=== PATIENT | female | born 1945 | race Caucasian/White ===

== ENCOUNTER 2017-10-07 08:15 | Emergency (ER) | payer BC, MEDICARE ==
--- NOTE | 2017-10-07 08:39 | ED ---
General Adult HPI - General Chief complaint: Fall Stated complaint: FALL DOWN STEP, LEFT SHOULDER AND HEAD INJURY Time Seen by Provider: 10/07/17 08:19 Source: patient, RN notes reviewed Mode of arrival: ambulatory Limitations: no limitations - History of Present Illness Initial comments: 72-year-old female presents to the emergency department with a chief complaint of trip and fall. She has 3 stairs to go into where she parked her car. She states that she lost her balance she fell hitting her left shoulder and the left side of her head. She states she originally had dizziness after she got up from the fall but that seems to be getting somewhat better. She admits to mild headache. She denies any changes in vision. She states she had bruising around her left eye but now she is just noticed bruising. She denies any neck pain. She states she has had some shoulder pain from the fall. It hurt worse when she fell but it is improving at this time. She states she is able to move the shoulder. She states there is no lightheadedness or dizziness prior to the fall. It was just a trip and fall. No chest pain or shortness of breath. She did not pass out with the fall. She denies any use of blood thinners. Patient denies any recent fever, chills, shortness of breath, chest pain, back pain, abdominal pain, nausea vomiting, numbness or tingling, dysuria or hematuria, constipation or diarrhea, s or visual changes, or any other current symptoms. - Related Data Home Medications Medication Instructions Recorded Confirmed Ibuprofen [Advil] 400 mg PO DAILY 09/05/17 09/05/17 Meclizine [Antivert] 25 mg PO TID PRN 09/05/17 09/05/17 Nebivolol HCl [Bystolic] 10 mg PO DAILY 09/05/17 09/05/17 Allergies Allergy/AdvReac Type Severity Reaction Status Date / Time No Known Allergies Allergy Verified 10/07/17 08:18 Review of Systems ROS Statement: Those systems with pertinent positive or pertinent negative responses have been documented in the HPI. ROS Other: All systems not noted in ROS Statement are negative. Past Medical History Past Medical History: Hypertension Additional Past Medical History / Comment(s): vertigo, deaf right ear History of Any Multi-Drug Resistant Organisms: None Reported Past Surgical History: No Surgical Hx Reported Past Psychological History: No Psychological Hx Reported Smoking Status: Never smoker Past Alcohol Use History: Rare Past Drug Use History: None Reported General Exam Limitations: no limitations General appearance: alert, in no apparent distress Head exam: Present: atraumatic, normocephalic, normal inspection Eye exam: Present: normal appearance, PERRL, EOMI, periorbital swelling (Some mild swelling over the lateral aspect of the left eye with ecchymosis), periorbital tenderness (Tenderness of the lateral aspect of the left eye). Absent: scleral icterus, conjunctival injection ENT exam: Present: normal exam, mucous membranes moist Neck exam: Present: normal inspection. Absent: tenderness, meningismus, lymphadenopathy Respiratory exam: Present: normal lung sounds bilaterally. Absent: respiratory distress, wheezes, rales, rhonchi, stridor Cardiovascular Exam: Present: regular rate, normal rhythm, normal heart sounds. Absent: systolic murmur, diastolic murmur, rubs, gallop, clicks Extremities exam: Present: normal inspection, full ROM, tenderness (Minimal tenderness diffusely to the top of the left shoulder), normal capillary refill. Absent: pedal edema, joint swelling, calf tenderness Back exam: Present: normal inspection Neurological exam: Present: alert, oriented X3, CN II-XII intact, reflexes normal. Absent: motor sensory deficit Psychiatric exam: Present: normal affect, normal mood Skin exam: Present: warm, dry, intact, normal color. Absent: rash Course Vital Signs 10/07/17 08:16 Temperature 98.1 F Pulse Rate 78 Respiratory 20 Rate Blood Pressure 183/79 O2 Sat by Pulse 99 Oximetry Medical Decision Making - Medical Decision Making 72-year-old female presents to the emergency Department chief complaint of trip and fall. At this time patient's imaging has been reviewed. Patient is reassessed and states she is feeling better. This time we discussed ice. We discussed follow-up. We discussed return parameters all questions. The patient stated that she understood and she is in agreement this plan. All questions have been answered. She will be discharged. - Radiology Data Radiology results: report reviewed, image reviewed Disposition Clinical Impression: Fall, Concussion without loss of consciousness, Left shoulder pain, Facial contusion Disposition: HOME SELF-CARE Condition: Stable Instructions: Concussion (ED) Additional Instructions: Please use medications as discussed. Please return for any worsening or changing symptoms. Please follow up as discussed. Referrals: Javier Rodriguez DO [Primary Care Provider] - 1-2 days Time of Disposition: 09:25
--- NOTE | 2017-10-07 09:09 | XR ---
Left shoulder HISTORY: Trauma and pain 3 views of the left shoulder There is arthropathy at the acromioclavicular joint. Bone mineralization, joint spaces and alignment are maintained. Left lung apex as visualized is normal. Degenerative disc changes are present in the visualized spine. IMPRESSION: No fracture or dislocation is evident.
--- NOTE | 2017-10-07 09:19 | CT ---
EXAMINATION TYPE: CT brain cspine wo con, CT facial bones wo con DATE OF EXAM: 10/07/2017 COMPARISON: NONE HISTORY: Fall, bruising lateral left eye socket with headache and neck pain. CT DLP: 1778.99 (accession [id number]), 359.70 (accession [id number]) mGycm. Automated Exposure Control f or Dose Reduction was Utilized. TECHNIQUE: CT scan of the head , facial bones, and cervical spine are all performed without contrast. FINDINGS: There is no acute intracranial hemorrhage or midline shift identified. Ventricles and sul ci are mildly prominent consistent with mild diffuse age-related cerebral atrophy. The calvarium is intact. Nasal bones and bridge are intact. Orbital floors and valdez are intact bilaterally. The globes are in tact bilaterally. Intraconal fat is preserved. The zygomatic arches are intact bilaterally. The ptery goid plates are intact. Visualized mandible is intact. Temporomandibular joints are maintained bilate rally. Visualized paranasal sinuses are clear. Minimal subcutaneous edema and/or hematoma left zygoma level near axial image 8. Cervical spine is visualized in its entirety from C1 through upper thoracic levels and demonstrates s atisfactory alignment without evidence of acute fracture or dislocation. Prevertebral soft tissue ap pears within normal limits. The C1-C2 articulation is within normal limits on the coronal images. Vertebral body heights are maintained. There is moderate disc space narrowing and spurring C5-C6 leve l. Posterior spur disc complex is seen C6-C7 level on sagittal images. Review of axial images shows the C2-C3 level to appear within normal limits. Axial images at C3-C4 level shows central disc protrusion effacing anterior thecal sac up to ventral surface of spinal cord on axial image 33. Bilateral neural foramina are patent. Axial images at C4-C5 level show small central disc protrusion effacing anterior thecal sac and axial image 40, bilateral neural foramina are patent. Axial images at C5-C6 level show posterior and marginal spurring effacing anterior thecal sac and cau sing [id number] bilateral neural foraminal narrowing near axial image 48. Axial images at C6-C7 level show posterior spur disc complex effacing anterior thecal sac with margin al spurring causing [id number] bilateral neural foraminal narrowing. Axial images at C7-T1 level are felt within normal limits. Thyroid gland is overall heterogeneous. Visualized lung apices are clear. There are prominent but sub centimeter lymph nodes scattered throughout the neck bilaterally. IMPRESSION: 1. There is no acute fracture or dislocation evident in the cervical spine. 2. No acute intracranial hemorrhage or midline shift is seen. 3. No acute facial bone fracture or dislocation is seen.
[2017-10-07 09:50] VITALS: BP 157/84; PULSE 87; RESP 17; TEMP 98.3
== END 2017-10-07 09:49 | disposition home or self-care (01) ==
LOC: EC 08:15
DX: S06.0X0A Concussion without loss of consciousness, initial encounter (principal); S00.83XA Contusion of other part of head, initial encounter; M25.512 Pain in left shoulder; I10 Essential (primary) hypertension; Z79.899 Other long term (current) drug therapy; Z79.1 Long term (current) use of non-steroidal anti-inflammatories (NSAID); W10.9XXA Fall (on) (from) unspecified stairs and steps, initial encounter
CPT/HCPCS: 70450; 70486; 72125; 99284

== ENCOUNTER → 2020-04-12 | Outpatient (CLI) | payer MEDICARE, OTHER | END | disposition home or self-care (01) | LOC: LABPAT 14:31 | PROVIDERS: ATTEND Orthopaedic Surgery | DX: Z01.812 Encounter for preprocedural laboratory examination (principal) | CPT/HCPCS: 87070 ==

== ENCOUNTER 2020-04-23 11:03 | Observation (INO) | payer MEDICARE, OTHER ==
[2020-04-13 10:27] VITALS: BMI 35.9
--- NOTE | 2020-04-22 16:16 | HP ---
HISTORY AND PHYSICAL REASON FOR ADMISSION: Surgery is 04/23/2020. HISTORY OF PRESENT ILLNESS: Riya Pena is a 74-year-old patient seen with symptomatic left knee osteoarthritis. We discussed options. She elected to proceed with left total knee arthroplasty. Consent was obtained. Medical clearance was provided by Dr. Rodriguez. PAST MEDICAL HISTORY: Hypertension. SURGICAL HISTORY: Breast reduction surgery, right knee arthroscopy. MEDICATIONS: Atenolol. ALLERGIES: None. SOCIAL HISTORY: She denies tobacco use. PHYSICAL EXAMINATION: Evaluation of the left knee: Range of motion is -7 to 110. Mild effusion. Tenderness medial joint line. Crepitus medial patellofemoral compartments range of motion. Pain with patellofemoral compression. Ligaments stable. Hip rotation without pain. Distal neurovascular exam is intact. RADIOGRAPHS: Radiographs of her left knee reveal severe osteoarthritic changes. IMPRESSION: 1. Left knee osteoarthritis. 2. Hypertension. PLAN: Left total knee arthroplasty. MMODL / IJN: [id number] /
[~2020-04-23 11:03] MED LIST: ACETAMINOPHEN TAB 500 MG TAB PO ONE; LIDOCAINE 1% (10MG/ML) FOR IV START INTRADERMA PRN; MELOXICAM 7.5 MG TAB PO ONE; MIDAZOLAM 2 MG/2 ML VIAL IV PRN; ROPIVACAINE 246.25 MG, EPINEPHrine 0.5 MG, KETOROLAC 30 MG, cloNIDine HCL/PF 80 MCG, WA... MISCELLANE ONE; TRANEXAMIC ACID 1,000 MG in SODIUM CHLORIDE 0.9% 100 ML IVPB ONE; fentaNYL (PF) 50 MCG/ML 2 ML AMP IV PRN
[2020-04-23] MEDS ORDERED: ACETAMINOPHEN TAB 500 MG TAB ONE (11:32)
[2020-04-23] MEDS ORDERED: ONDANSETRON 4 MG/2 ML VIAL ONE (11:32)
[2020-04-23] MEDS: LACTATED RINGERS 1,000 ML IV SCH ×2 (11:43→17:53)
[2020-04-23] MEDS ORDERED: DEXAMETHASONE SOD PHOSPHATE 10 MG/ML 1 ML VIAL IV ONE (11:44)
[2020-04-23] MEDS ORDERED: MIDAZOLAM 2 MG/2 ML VIAL IV ONE (12:00)
[2020-04-23] MEDS ORDERED: PROPOFOL 10 MG/ML 20 ML VIAL IV ONE (12:41)
[2020-04-23] MEDS ORDERED: MIDAZOLAM 2 MG/2 ML VIAL ONE (12:41)
[2020-04-23] MEDS ORDERED: TRANEXAMIC ACID 1,000 MG/10 ML VIAL ONE (12:41)
[2020-04-23] MEDS ORDERED: SODIUM CHLORIDE 0.9% 100 ML BAG ONE (12:41)
[2020-04-23] MEDS ORDERED: fentaNYL (PF) 50 MCG/ML 2 ML AMP ONE (12:41)
[2020-04-23] MEDS ORDERED: ceFAZolin 3,000 MG in SODIUM CHLORIDE 0.9% IRRIGATIO 3,000 ML IRRIGATION ONE (13:27)
[2020-04-23] MEDS ORDERED: ROPIVACAINE 0.2%-NS ON-Q PUMP 1,090 MG, EMPTY PAIN BALL 1 EACH MISCELLANE PRN (14:05)
--- NOTE | 2020-04-23 14:05 | P.ANPRN ---
Procedure Note - Anesthesia - Nerve Block Performed Left Adductor Canal Infusion Time Out Performed: Yes (1200) Date of Procedure: 04/23/20 Procedure Start Time: 12:01 Procedure Stop Time: 12:11 Location of Patient: PreOp Indication: Acute Post-Operative Pain, Analgesia, Requested by Surgeon Specifically requested for management of pain by DrClaire: Rosalino Marie Sedation Type: Sedate with meaningful contact maintained Preparation: Sterile Prep, Sterile Dressing Position: Supine Catheter: Indwelling Needle Types: Adelita Needle Gauge: 20 Ultrasound used to visualize needle placement: Yes Ultrasound used to observe medication spread: Yes Injectate: 0.5% Ropivacaine (see comment for volume) (0.5 % ropivacaine 20 mL and 10 mg dexamethasone) Blood Aspirated: No Pain Paresthesia on Injection Noted: No Resistance on Injection: Normal Image Stored and Saved: Yes Events: Uneventful and Well Tolerated
[2020-04-23] MEDS ORDERED: HYDROcodone/APAP 5-325MG 1 EACH TAB PO PRN (14:36)
[2020-04-23] MEDS ORDERED: NALOXONE 0.4 MG/ML 1 ML VIAL IV PRN (14:36)
[2020-04-23] MEDS ORDERED: HYDROmorphone 0.5 MG/0.5 ML SYRINGE IVP PRN ×3 (14:36)
--- NOTE | 2020-04-23 14:36 | P.OP ---
Date of Procedure: 04/23/20 Preoperative Diagnosis: Left knee osteoarthritis Postoperative Diagnosis: Left knee osteoarthritis Procedure(s) Performed: Left total knee arthroplasty Implants: 1. Microport evolution size 4 left cemented femur 2. Microport evolution size 4 left cemented tibial baseplate 3. Microport evolution size 4 left CS 10 mm polyethylene tibial insert 4. Microport advance 32 mm all polyethylene cemented patella Anesthesia: regional (Adductor canal catheter), spinal Surgeon: Rosalino Marie Software Testing Specialist #1: Ketan Mata Estimated Blood Loss (ml): 50 Pathology: other (Bone) Condition: stable Disposition: PACU Indications for Procedure: 74-year-old patient seen with symptomatic left knee osteoarthritis. After treatment options were discussed, she elected to proceed with total knee arthroplasty. Operative Findings: See description of procedure Description of Procedure: Patient was taken to the operative suite after having an adductor canal catheter placed by the department of anesthesia. Patient underwent a left anesthetic by the department of anesthesia. Patient was given preoperative IV intake antibiotics and TXA. A well-padded tourniquet was placed about the left lower extremity. The lower extremity was then prepped and draped in the normal sterile orthopedic fashion. The extremity was elevated, a tourniquet was insufflated to 300. A standard anterior incision was made sharply through skin. Dissection was taken down through the subcutaneous soft tissues down to the extensor mechanism. A medial arthrotomy was performed, patella was everted and knee was flexed. There was advanced osteoarthritis noted. I introduced my distal intramedullary femoral drill. I then introduced the distal femoral cutting jig. Uziel LOPEZ secured the cutting jig with 2 pins. I held retractors in position while Uziel LOPEZ performed the distal femoral resection through the guide area we now removed her distal femoral cutting guide. We now placed our 4-in-1 femoral cutting block and positioned and it was secured with 2 pins by Uziel LOPEZ while I held the block in position. The distal femoral finishing was now completed. A proximal tibial cutting guide was positioned. I held the guide in the appropriate position with both hands well zUiel LOPEZ inserted stabilizing pins into the guide. Proximal tibial cut was made. We now placed a trial femoral component into position, along with an appropriate size tibial tray and insert. We now took the knee through range of motion and had full extension good flexion and good overall soft tissue balance noted. The patella was everted and stabilized with 2 towel clips held by Uziel LOPEZ while I performed a flush with patellar quad tendon utilizing a fresh sawblade. We templated the patella, appropriate drill holes were made. An appropriate trial patella was positioned, knee was taken through full range of motion with the patella tracking very nicely. The trial patella was removed. Drill holes were made through the femoral component. All trial components were removed after marking off the appropriate rotation of the tibia. Retractors were now positioned along the proximal tibia. An appropriate keel punch was made with the appropriate size tibial guide by myself on Uziel LOPEZ assisted by holding retractors. At this point appropriate size implants were chosen and opened. The joint was irrigated copiously with pulse lavage mechanical irrigation. The posterior capsule was infiltrated with local analgesic. The wound was irrigated with pulse lavage mechanical irrigation. We mixed antibiotic methylmethacrylate. We placed the knee into flexion. We placed multiple retractors assisted by Uziel LOPEZ to expose the proximal tibia. Once the methyl methacrylate was ready, the tibial component was cemented into place removing any excess methylmethacrylate form by both myself and Uziel LOPEZ. The femoral component was cemented into place removing the removing any excess methylmethacrylate performed by both myself and Uziel LOPEZ. We then inserted the appropriate size polyethylene tibial insert. We made sure that it was locked into position. We took the knee into full extension, and then back in a flexion making sure we had removed any excess methylmethacrylate. The patellar component was then cemented down and secured with clamp. Excess me thylmethacrylate removed. We kept the knee in full extension, patellar clamp in position until methylmethacrylate had hardened. Once it had hardened the patellar clamp was removed. The knee was taken through full range of motion. The patella tracked nicely. There was good soft tissue balancing. The tourniquet was now released. Additional hemostasis was achieved via electrocautery. A second gram of TXA was given. The wound again was irrigated with pulse lavage mechanical irrigation. The superficial soft tissues were infiltrated local analgesic. The extensor mechanism was repaired with Vicryl. We checked the repair with range of motion and it was stable. The subcutaneous soft tissues were repaired with Vicryl in layers. The skin was approximated with pernio/Dermabond. Sterile dressings were applied followed by loose web roll and Aime bandage. The patient was transferred to a bed, and taken to recovery in stable and satisfactory condition. Uziel LOPEZ assisted with this complex procedure.
--- NOTE | 2020-04-23 15:13 | XR ---
EXAMINATION TYPE: XR knee limited LT DATE OF EXAM: 04/23/2020 CLINICAL HISTORY: Left knee pain and arthritis status post total knee replacement. TECHNIQUE: Portable AP and crosstable lateral views of the left knee are obtained immediately postop eratively. COMPARISON: None FINDINGS: Metallic hardware from total left knee arthroplasty is seen and appears satisfactory in al ignment and position. There is evidence of recent surgery with diffuse subcutaneous gas and soft tis knea swelling along with vertical skin archie all noted. IMPRESSION: METALLIC HARDWARE FROM TOTAL LEFT KNEE ARTHROPLASTY IS SATISFACTORY IN ALIGNMENT.
[2020-04-23] MEDS ORDERED: LACTATED RINGERS 1,000 ML IV ONE ×2 (15:21)
[2020-04-23] MEDS: SODIUM CHLORIDE 0.9% 1,000 ML IV SCH ×2 (17:54→22:18)
[2020-04-23] MEDS ORDERED: ENOXAPARIN 30 MG/0.3 ML SYRINGE SQ SCH (21:00)
[2020-04-23] MEDS ORDERED: SENNOSIDES-DOCUSATE SODIUM 1 EACH TAB PO SCH (21:00)
[2020-04-23] MEDS: ONDANSETRON 4 MG/2 ML VIAL IVP PRN (22:26)
[2020-04-23] MEDS: HYDROcodone/APAP 5-325MG 1 EACH TAB PO PRN (22:26)
[2020-04-24 05:20] VITALS: RESP 18
--- NOTE | 2020-04-24 05:55 | P.PN ---
Progress Note - Text Progress Note Date: 04/24/20 Patient was seen at bedside at 550 AM. Patient is postop day 1 left total knee replacement with adductor canal catheter placed for pain . Ropivacaine 0.2% infusion running at 8 ml per hour. VAS score is 2. Patient denies side effects. Lower extremity sensation and motor function is intact. Patient has ambulated. Dressing clean dry and intact over catheter site
[2020-04-24] MEDS ORDERED: ENOXAPARIN 30 MG/0.3 ML SYRINGE SQ SCH (06:00)
[2020-04-24 08:04] VITALS: BP 137/77; PULSE 76; TEMP 98.2
[2020-04-24] MEDS: ONDANSETRON 4 MG/2 ML VIAL IVP PRN (08:32)
[2020-04-24] MEDS: HYDROcodone/APAP 5-325MG 1 EACH TAB PO PRN (08:32)
[2020-04-24] MEDS ORDERED: MELOXICAM 7.5 MG TAB PO SCH (09:00)
[2020-04-24 10:15] LABS: Basophils % (A) 0 %; Eosinophils % (A) 0 %; HCT 35.2 % (34.0-46.0); HGB 11.1 gm/dL (11.4-16.0); Lymphocytes # (A) 1.4 k/uL (1.0-4.8); Lymphocytes % (A) 12 %; MCH 29.1 pg (25.0-35.0); MCHC 31.5 g/dL (31.0-37.0); MCV 92.4 fL (80.0-100.0); Monocytes # (A) 0.5 k/uL (0-1.0); Monocytes % (A) 5 %; Neutrophils # (A) 9.4 k/uL (1.3-7.7); Neutrophils % (A) 82 %; Platelet Count 210 k/uL (150-450); RBC 3.82 m/uL (3.80-5.40); RDW 13.5 % (11.5-15.5); WBC 11.5 k/uL (3.8-10.6)
--- NOTE | 2020-04-24 11:01 | P.PN ---
Subjective Progress Note Date: 04/24/20 Principal diagnosis: Status post left total knee arthroplasty patient evaluated bedside, she's doing very well. She did well with therapy. She has no chest pain or shortness of breath. No nausea vomiting. Objective - Vital Signs Vital signs: Vital Signs Temp 98.2 F 04/24/20 07:00 Pulse 76 04/24/20 08:30 Resp 18 04/24/20 08:30 BP 137/77 04/24/20 07:00 Pulse Ox 96 04/24/20 07:00 Intake & Output 04/23/20 04/24/20 04/24/20 18:59 06:59 18:59 Intake Total 1351 Output Total 50 500 Balance 1301 -500 Weight 91.3 kg Intake: IV 1351 Output: Urine 500 Estimated Blood Loss 50 Other: Voiding Method Toilet Toilet # Voids 3 - Exam Left lower extremity: Incision is clean, dry, and intact. The foam dressing is in good condition. There is minimal soft tissue swelling and ecchymosis surrounding the medial and lateral aspects of the incision. Calf is soft, no tenderness with palpation. Plantar flexion, dorsiflexion, EHL, FHL are intact. Sensory exam to light touch throughout the extremity is intact, dorsal pedis pulses 2+. - Labs CBC & Chem 7: 04/24/20 09:03 Labs: Abnormal Lab Results - Last 24 Hours (Table) 04/24/20 Range/Units 09:03 WBC 11.5 H (3.8-10.6) k/uL Hgb 11.1 L (11.4-16.0) gm/dL Neutrophils # 9.4 H (1.3-7.7) k/uL Assessment and Plan Assessment: Status post left total knee arthroplasty Plan: pain control, plan for discharge home on low-dose oral medication GI and DVT prophylaxis, aspirin 81 mg twice a day Wound care instructions discussed Home physical therapy and nursing Medical recommendations Plan for discharge home today Time with Patient: Less than 30
--- NOTE | 2020-04-24 11:04 | P.DS ---
Providers Date of admission: 04/23/2020 Expected date of discharge: 04/24/20 Attending physician: Rosalino Marie Consults: 04/23/20 14:36 Consult Physician Routine Consulting Provider: Javier Rodriguez Reason/Comments: Medical management Do you want consulting provider notified?: Yes Primary care physician: Javier Rodriguez Hospital Course: Date of admission: 04/23/2020 Date of discharge: 04/24/2020 Admission diagnosis: Status post left total knee arthroplasty Discharge diagnosis: Same Attending physician: Dr. Marie Surgical procedures: Left total knee arthroplasty Brief history: Patient is a 74-year-old female with a history of progressive primary left knee osteoarthritis. At this point patient has failed conservative treatment measures and has opted to proceed with a elective left total knee arthroplasty. Hospital course: Details of patient's surgery can be found in operative report. Patient tolerated the procedure well and was subsequently transported to orthopedic floor. Patient's orthopeidc and medical care was provided daily. Patient had daily laboratory tests performed for evaluation of overall blood counts. Patient had daily physical therapy to include strengthening range of motion as well as education with walker ambulation. Patient was treated with Lovenox for their postoperative DVT prophylaxis during their inpatient stay. Patient was noted to have a relatively uneventful postoperative course. Patient reported satisfactory pain control with oral pain medications by postoperative day 0. Patient showed satisfactory progress with physical therapy. Patient moved steadily through the program and had no difficulty meeting the goals by postoperative day 1. Given patient's otherwise satisfactory course and having met physical therapy goals, plan is to discharge patient home on postoperative day 1. Discharge condition/disposition: Patient will be discharged home in stable condition. Discharge medications: Instructions are given on resumption of patient's normal daily medications per primary care recommendation, in addition patient will be prescribed Franklin 5 mg/325 mg, Colace 100 mg, aspirin 81 mg. Discharge instructions: 1. Wound care and infection precautions, keep incision dry and covered while showering, no lotions, creams, moisturizers. No soaking, tubs, pools, hottubs. Do not scrub over the incision. 2. Weight-bear as tolerated with walker / cane until follow-up. 3. Ice and elevate when necessary. Do not exceed 20 minutes per hour with ice pack. 4. Utilize compression sleeve until seen at first follow up appointment. 5. Visiting nursing care. 6. Home physical therapy. 7. Pain meds and anticoagulants per prescription. 8. Pain medication has potential to cause constipation. Increase oral fluid and fiber intake. Contact primary care provider if you have not had a bowel movement within 48 hours after discharge 9. No anti-inflammatory medication until discussed at first post operative visit, this including Motrin, Aleve, Mobic, Diclofenac. 10. Follow up in office at 2 weeks postop with Uziel Mata PA-C 11. Follow up with your primary care doctor 7-10 days after discharge. 12. Contact [facility] with any questions, . Procedures: Left total knee arthroplasty Patient Condition at Discharge: Good Plan - Discharge Summary Discharge Rx Participant: No New Discharge Prescriptions: New Aspirin [Adult Low Dose Aspirin EC] 81 mg PO BID #60 tablet. Docglennate [Colace] 100 mg PO DAILY #30 capsule Hydrocodone/Acetaminophen [Franklin 5-325] 1 each PO Q6HR PRN #28 tab PRN Reason: Pain No Action Acetaminophen Tab [Tylenol] 650 mg PO Q4H PRN PRN Reason: Pain Atenolol [Tenormin] 50 mg PO DAILY Multivitamin [Multivitamins Adult Gummies] 1 each PO DAILY Discharge Medication List Acetaminophen Tab [Tylenol] 650 mg PO Q4H PRN 04/13/20 [History] Atenolol [Tenormin] 50 mg PO DAILY 04/19/20 [History] Multivitamin [Multivitamins Adult Gummies] 1 each PO DAILY 04/23/20 [History] Aspirin [Adult Low Dose Aspirin EC] 81 mg PO BID #60 tablet. 04/24/20 [Rx] Docusate [Colace] 100 mg PO DAILY #30 capsule 04/24/20 [Rx] Hydrocodone/Acetaminophen [Franklin 5-325] 1 each PO Q6HR PRN #28 tab 04/24/20 [Rx] Follow up Appointment(s)/Referral(s): Javier Rodriguez DO [Primary Care Provider] - 1 Week Ketan Mata PAC [PHYSICIAN COFFEE SHOP ATTENDANT] - 05/16/20 1:50 pm Activity/Diet/Wound Care/Special Instructions: Orthopedic Discharge Instructions: 1. Wound care and infection precautions, keep incision dry and covered while showering, no lotions, creams, moisturizers. No soaking, pools, hot tubs. Do not scrub over incision. 2. Weight-bear as tolerated with walker / cane until follow-up. 3. Ice and elevate when necessary. Do not exceed 20 minutes per hour with ice pack. 4. Utilize compression sleeve until seen at first follow up appointment. 5. Pain meds and anticoagulants per prescription. 6. Pain medication has potential to cause constipation. Increase oral fluid and fiber intake. Contact primary care provider if you have not had a bowel movement within 48 hours after discharge. 7. No anti-inflammatory medication until discussed at first post operative visit, this including Motrin, Aleve, Mobic, Diclofenac. 8. Follow up in office at 2 weeks postop with Uziel Mata PA-C 9. Follow up with your primary care doctor 7-10 days after discharge. 10. Contact [facility] with any questions, . Foam dressing instructions: 1. Okay to remove on 05/04/2020 Discharge Disposition: HOME WITH HOME HEALTH SERVICES
--- NOTE | 2020-04-24 23:44 | P.CONS ---
History of Present Illness - Reason for Consult Consult date: 04/24/20 - History of Present Illness This is a pleasant 74-year-old white female who underwent a right total knee arthroplasty she was previously seen in my office and medically cleared for surgery she is doing well postop without shortness of breath chest pain or nausea vomiting. She is eating and drinking without incident. She is in no acute distress at this time and awaiting final physical therapy assessment. Review of Systems GENERAL: Patient denies fever. Denies chills. EYES: Denies blurred vision. Denies vision changes. Denies eye pain. EARS, NOSE, MOUTH, & THROAT: Denies headache. Denies sore throat. Denies ear pain. RESPIRATORY: Denies cough. Denies shortness of breath. Denies sputum production. Denies hemoptysis. CARDIOVASCULAR: Denies chest pain or pressure. Denies palpitations. Denies arrhythmias. Hypertension GASTROINTESTINAL: Denies abdominal pain. Denies diarrhea. Denies constipation. Denies nausea. Denies vomiting. Denies heartburn. Denies blood in the stool. GENITOURINARY: Denies urinary frequency. Denies burning. Denies dysuria. Denies cloudy urine. Denies blood in the urine. MUSCULOSKELETAL: Admits to pain in right knee with decreased range of motion pulse however it's a lot less since she anticipated INTEGUMENTARY: Denies pruitis. Denies rash. PSYCHIATRIC: Denies suicidal or homicial ideations. ENDOCRINE: Denies weight change. Denies polydipsia. Denies polyuria. HEMATOLOGIC: Denies bleeding disorders. Past Medical History Past Medical History: Hypertension, Osteoarthritis (OA) Additional Past Medical History / Comment(s): vertigo, deaf right ear, bruises easily History of Any Multi-Drug Resistant Organisms: None Reported Past Surgical History: Breast Surgery, Section Additional Past Surgical History / Comment(s): breast reduction Past Anesthesia/Blood Transfusion Reactions: Previous Problems w/ Anesthesia, Postoperative Nausea & Vomiting (PONV) Additional Past Anesthesia/Blood Transfusion Reaction / Comm: "sensitive to m edication and pain in head with spinal anesthesia" Past Psychological History: Anxiety Smoking Status: Never smoker Past Alcohol Use History: Rare Past Drug Use History: None Reported - Past Family History Son(s) Family Medical History: Cancer Additional Family Medical History / Comment(s): -leukemia Medications and Allergies Home Medications Medication Instructions Recorded Confirmed Type Acetaminophen Tab [Tylenol] 650 mg PO Q4H PRN 04/13/20 04/13/20 History Atenolol [Tenormin] 50 mg PO DAILY 04/19/20 04/19/20 History Multivitamin [Multivitamins Adult 1 each PO DAILY 04/23/20 04/23/20 History Gummies] Aspirin [Adult Low Dose Aspirin EC] 81 mg PO BID #60 tablet. 04/24/20 Rx Docusate [Colace] 100 mg PO DAILY #30 capsule 04/24/20 Rx Hydrocodone/Acetaminophen [[place] 1 each PO Q6HR PRN #28 tab 04/24/20 Rx 5-325] Ondansetron HCl [Zofran] 8 mg PO Q12H PRN #20 tab 04/24/20 Rx Allergies Allergy/AdvReac Type Severity Reaction Status Date / Time codeine AdvReac Nausea & Verified 04/23/20 11:21 Vomiting Physical Exam Osteopathic Statement: *. No significant issues noted on an osteopathic structural exam other than those noted in the History and Physical/Consult. Vitals: Vital Signs Temp Pulse Resp BP Pulse Ox 04/24/20 08:30 76 18 04/24/20 07:00 98.2 F 76 18 137/77 96 04/24/20 03:30 18 04/24/20 00:30 98.4 F 79 20 153/77 93 L 04/24/20 00:00 16 Intake and Output 04/24/20 04/24/20 04/25/20 14:59 22:59 06:59 Other: Voiding Method Toilet GENERAL: This is a 74-year-old in no apparent distress at the time of examination. Pleasant and cooperative. HEENT: Head is atraumatic, normocephalic. Pupils are equal, round, and reactive to light. Sclerae anicteric. Conjunctivae are clear. Mucus membranes of the mouth are moist. Neck is supple. RESPIRATORY: Clear to auscultation. No wheezes, rales, or rhonchi. No use of accessory muscles. Patient maintaining oxygen saturation greater than 92%. No chest wall tenderness is noted on palpation or with deep breathing. CARDIOVASCULAR: Regular rate and rhythm. S1 and S2 noted. No systolic or diastolic murmur auscultated. No JVD noted. No S3 or S4 noted. GASTROINTESTINAL: No distention noted. Abdomen soft and round. Normal active bowel sounds auscultated x 4 quadrants. No pain or tenderness noted upon palpation. INTEGUMENTARY: No cyanosis. No jaundice. No rashes noted. No cellulitis noted. EXTREMITIES: 2+ peripheral pulses. No evidence of peripheral edema. No calf tenderness noted. Right knee midline incision clean and dry with minimum swe lling. NEUROLOGIC: Cranial nerves II-XII intact. PSYCHIATRIC: Awake, alert, and oriented X 3. Appropriate affect. Intact judgement and insight. Results CBC & Chem 7: 04/24/20 09:03 Labs: Abnormal Lab Results - Last 24 Hours (Table) 04/24/20 Range/Units 09:03 WBC 11.5 H (3.8-10.6) k/uL Hgb 11.1 L (11.4-16.0) gm/dL Neutrophils # 9.4 H (1.3-7.7) k/uL Assessment and Plan (1) Hypertension Status: Acute Code(s): I10 - ESSENTIAL (PRIMARY) HYPERTENSION SNOMED Code(s): 58062288 (2) Osteoarthritis of left knee Status: Acute Code(s): M17.12 - UNILATERAL PRIMARY OSTEOARTHRITIS, LEFT KNEE SNOMED Code(s): 608828396595365 (3) Status post total left knee replacement Status: Acute Code(s): Z96.652 - PRESENCE OF LEFT ARTIFICIAL KNEE JOINT SNOMED Code(s): 4077525555678
== END 2020-04-24 14:31 | disposition home health service (06) ==
LOC: OR 11:03 → 4SSUR 17:12 → OR 04-24 10:58
PROVIDERS: ADMIT Orthopaedic Surgery; ATTEND Orthopaedic Surgery
DX: M17.12 Unilateral primary osteoarthritis, left knee (principal); H91.91 Unspecified hearing loss, right ear; I10 Essential (primary) hypertension; Z79.82 Long term (current) use of aspirin; Z79.899 Other long term (current) drug therapy; Z80.6 Family history of leukemia; Z88.5 Allergy status to narcotic agent
CPT/HCPCS: 97110; 97161; 64448; 76942; 85025; 88300; 73560; 27447; G0378; C1776; C1713; J2250; J0171; J1100; J0690 ×3; J2405 ×2; J3010; J1885; J1650; J2795 ×2; J2704; J0735